=== PATIENT | male | born 1980 | race Caucasian/White ===

== ENCOUNTER 2024-05-06 04:53 | Emergency (ER) | payer BC, SELFPAY ==
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
[2024-05-06 05:19] VITALS: PULSE 0
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
--- NOTE | 2024-05-06 05:37 | PC.NURSE ---
0535 Asset Protection Detective arrives
--- NOTE | 2024-05-06 08:11 | PC.NURSE ---
Risk Investigator Louis Darling Rudy [phone] Body to [facility] home in [facility]
== END 2024-05-06 07:45 | disposition expired ==
PROVIDERS: Emergency Provider Emergency Medicine
DX: S82.202B Unspecified fracture of shaft of left tibia, initial encounter for open fracture type I or II (principal); S01.01XA Laceration without foreign body of scalp, initial encounter; S01.412A Laceration without foreign body of left cheek and temporomandibular area, initial encounter; I46.8 Cardiac arrest due to other underlying condition; V44.6XXA Car passenger injured in collision with heavy transport vehicle or bus in traffic accident, initial encounter
CPT/HCPCS: 92950; 96374; 99285; J0171